=== PATIENT | male | born 1935 | race Caucasian/White ===

== ENCOUNTER 2017-08-27 08:44 | Observation (INO) | payer MEDICARE ==
[2017-08-25 09:33] VITALS: BP 145/62
[2017-08-25 09:38] LABS: BASOPHILS % (AUTO) 0.6 % (0.0-5.0); EOSINOPHILS % (AUTO) 2.1 % (0.0-8.0); LYMPHOCYTES % (AUTO) 10.8 % (21.0-51.0); MEAN CORPUSCULAR HEMOGLOBIN 35.8 pg (27.0-33.0); MEAN CORPUSCULAR HGB CONC 35.6 g/dL (32.0-36.0); MEAN CORPUSCULAR VOLUME 100.6 fL (79-99); MONOCYTES % (AUTO) 16.6 % (3.0-13.0); NEUTROPHILS % (AUTO) 69.9 % (40.0-77.0); PLATELET COUNT (AUTO) 179 K/uL (130-400); RED BLOOD CELL COUNT(AUTO) 2.79 MIL/uL (4.50-6.20); RED CELL DISTRIBUTION WIDTH 13.7 % (11.0-15.5); WHITE BLOOD COUNT (AUTO) 6.2 K/uL (4.8-10.8)
[2017-08-25 09:44] LABS: CREATININE 4.6 mg/dL (0.5-1.5); POTASSIUM 4.3 mmol/L (3.5-5.1)
[2017-08-25 09:49] LABS: INR 1.01 (0.85-1.15); PROTHROMBIN TIME 10.6 SEC (9.6-11.6)
[~2017-08-27] VITALS: Ht 180.3 cm; Wt 68.3 kg
[2017-08-27] VITALS (13 sets, daily range): BP systolic 110–156; BP diastolic 48–67
[~2017-08-27 08:44] MED LIST: ASPI-555 PO; CLON0.1T PO; CLOP75TA14 PO; DOXA2TAB2 PO; FAMO40TA7 PO; FOLI1TAB82 PO; LOSA100T29 PO; SIMV40TA5 PO
[2017-08-27] MEDS ORDERED: SODIUM CHLORIDE 0.9% 1000ML 1,000 ML IV ONE (10:45)
[2017-08-27] MEDS ORDERED: LIDOCAINE HCL 1% MDV 50ML VIAL ONE (11:21)
[2017-08-27] MEDS ORDERED: BUPIVACAINE/PF 0.25% 30ML VIAL IJ ONE (11:21)
[2017-08-27] MEDS ORDERED: CEFAZOLIN 1GM / D5W 50ML 100 ML ONE (11:21)
[2017-08-27] MEDS ORDERED: CEFAZOLIN 1GM / D5W 50ML 50 ML ONE (11:23)
[2017-08-27] MEDS ORDERED: MORPHINE SULFATE 4 MG/1ML SYG ONE (11:51)
[2017-08-27] MEDS ORDERED: CEPH250 PO (12:41)
[2017-08-27] MEDS ORDERED: ONDANSETRON HCL 4 MG/2 ML VIAL IV PRN ×2 (12:45→14:45)
[2017-08-27] MEDS ORDERED: ACETAMINOPHEN 325 MG TAB PO PRN ×4 (12:45→14:45)
[2017-08-27] MEDS ORDERED: ACETAMINOPHEN-CODEINE 300/30MG TAB PO PRN (14:45)
[2017-08-27] MEDS ORDERED: NITROGLYCERIN 0.4 MG SL TAB SL PRN (14:45)
[2017-08-27] MEDS ORDERED: LACTULOSE 20 GM/30 ML UDCUP PO PRN (14:45)
[2017-08-27] MEDS ORDERED: MAG HYDROX/AL HYDROX/SIMETH ES 30 ML SUSP UDCUP PO PRN (14:45)
[2017-08-27] MEDS ORDERED: GUAIFENESIN-DM 200/20 MG 10 ML PO PRN (14:45)
[2017-08-27] MEDS ORDERED: HYDRALAZINE HCL 20 MG/ML VIAL IV PRN (14:45)
[2017-08-27] MEDS ORDERED: MORPHINE SULFATE 2 MG/ML 1ML SYG IV PRN (14:45)
[2017-08-27] MEDS ORDERED: FAMOTIDINE/PF 20 MG/2 ML VIAL IV SCH (21:00)
[2017-08-28 04:00] VITALS: BP 137/64
[2017-08-28 04:26] LABS: HEMATOCRIT 26.1 % (42-54); MEAN CORPUSCULAR HEMOGLOBIN 36.4 pg (27.0-33.0); MEAN CORPUSCULAR HGB CONC 36.1 g/dL (32.0-36.0); MEAN CORPUSCULAR VOLUME 100.7 fL (79-99); PLATELET COUNT (AUTO) 210 K/uL (130-400); RED CELL DISTRIBUTION WIDTH 13.5 % (11.0-15.5); WHITE BLOOD COUNT (AUTO) 7.8 K/uL (4.8-10.8)
[2017-08-28 04:33] LABS: CREATININE 6.2 mg/dL (0.5-1.5); POTASSIUM 4.6 mmol/L (3.5-5.1)
[2017-08-28 07:26] VITALS: BP 154/67
[2017-08-28 11:20] VITALS: BP 148/73
[2017-08-28 15:54] VITALS: BP 176/91
[2017-08-28] MEDS ORDERED: CEFAZOLIN SODIUM 1 GM VIAL IV SCH (17:45)
[2017-08-28] MEDS ORDERED: CEFAZOLIN SODIUM 1 GM VIAL ONE (18:03)
== END 2017-08-28 18:20 | disposition home or self-care (01) ==
LOC: DAH 08:44 → DAHIP 08:45 → 2DH 16:14
PROVIDERS: ADMIT Internal Medicine; ATTEND Internal Medicine
DX: I48.1 Persistent atrial fibrillation (principal); I12.0 Hypertensive chronic kidney disease with stage 5 chronic kidney disease or end stage renal disease; N18.6 End stage renal disease; K21.9 Gastro-esophageal reflux disease without esophagitis; N31.9 Neuromuscular dysfunction of bladder, unspecified; E78.00 Pure hypercholesterolemia, unspecified; D63.8 Anemia in other chronic diseases classified elsewhere; Z80.1 Family history of malignant neoplasm of trachea, bronchus and lung; Z83.3 Family history of diabetes mellitus; Z87.891 Personal history of nicotine dependence; Z95.0 Presence of cardiac pacemaker; Z99.2 Dependence on renal dialysis
CPT/HCPCS: 33228; 36415 ×2; 71045; 80048 ×2; 85025; 85027; 85610; 85730; 93005; 96374; A4218; A4606; C1785; G0378 ×34; J0690 ×3; J2270; J3490 ×3; J7030; 90935

== ENCOUNTER → 2019-05-03 | Outpatient (CLI) | payer MEDICARE ==
[~2019-05-03] MED LIST changes: +CEPH250 PO; -LOSA100T29 PO; +LOSA100T58 PO; +SIMV-46 PO; -SIMV40TA5 PO
== END | disposition home or self-care (01) ==
LOC: SHCH 08:14
PROVIDERS: ATTEND Internal Medicine Cardiovascular Disease
DX: I08.0 Rheumatic disorders of both mitral and aortic valves (principal); I11.0 Hypertensive heart disease with heart failure; I50.20 Unspecified systolic (congestive) heart failure; I71.4 Abdominal aortic aneurysm, without rupture; I47.2 Ventricular tachycardia; I48.20 Chronic atrial fibrillation, unspecified
CPT/HCPCS: 93306; 93978

== ENCOUNTER 2021-07-26 16:46 | Inpatient (IN) | payer MEDICARE ==
[~2021-07-26] VITALS: Ht 180.3 cm; Wt 75.8 kg
[~2021-07-26 16:46] MED LIST changes: -ASPI-555 PO; +ASPI-556 PO
[2021-07-26 17:19] LABS: BASOPHILS % (AUTO) 0.2 % (0.0-5.0); EOSINOPHILS % (AUTO) 0.3 % (0.0-8.0); HEMATOCRIT 31.2 % (42-54); LYMPHOCYTES % (AUTO) 4.6 % (21.0-51.0); MEAN CORPUSCULAR HEMOGLOBIN 32.6 pg (27.0-33.0); MONOCYTES % (AUTO) 11.4 % (3.0-13.0); NEUTROPHILS % (AUTO) 82.9 % (40.0-77.0); PLATELET COUNT (AUTO) 120 K/uL (130-400); RED BLOOD CELL COUNT(AUTO) 3.25 MIL/uL (4.50-6.20); RED CELL DISTRIBUTION WIDTH 15.5 % (11.0-15.5)
[2021-07-26 17:41] LABS: ALBUMIN 2.8 g/dL (3.5-5.0); CREATININE 5.2 mg/dL (0.5-1.5); POTASSIUM 3.9 mmol/L (3.5-5.1); TOTAL PROTEIN, SERUM 6.3 g/dL (6.0-8.3)
[2021-07-26 17:48] LABS: B-TYPE NATRIURETIC PEPTIDE < 5000 pg/mL (0-100)
[2021-07-26] MEDS ORDERED: NITROGLYCERIN 0.4 MG SL TAB SL PRN (19:30)
[2021-07-26] MEDS ORDERED: ACETAMINOPHEN 325 MG TAB PO PRN ×2 (19:30)
[2021-07-26] MEDS ORDERED: DEXAMETHASONE SOD PHOSPHATE 4 MG/ML 1ML VIAL IVP SCH (19:30)
[2021-07-26] MEDS ORDERED: ALBUTEROL INHALER 90MCG/INH IH PRN (19:30)
[2021-07-26] MEDS ORDERED: ONDANSETRON 4MG INJ IV PRN (19:30)
[2021-07-26 20:16] LABS: INR 1.21 (0.85-1.15)
[2021-07-26 20:17] LABS: PARTIAL THROMBOPLASTIN TIME 34.5 SEC (26.3-35.5)
[2021-07-26 20:30] LABS: CRP QUANTITATIVE 59.5 mg/L (0.00-9.0); MAGNESIUM 2.1 mg/dL (1.80-2.40); PHOSPHORUS 5.8 mg/dL (2.5-4.9)
[2021-07-26] MEDS ORDERED: ERGOCALCIFEROL (VITAMIN D2) 50,000 UNIT CAPSULE PO ONE (20:50)
[2021-07-26] MEDS ORDERED: PHARMACY COMMUNICATION MISC SCH (21:30)
[2021-07-26] MEDS ORDERED: ERGOCALCIFEROL (VITAMIN D2) 50,000 UNIT CAPSULE ONE (23:06)
[2021-07-26] MEDS: CEFTRIAXONE 1G VIAL IVP SCH (23:15)
[2021-07-26] MEDS: FAMOTIDINE 20MG TAB PO SCH (23:15)
[2021-07-26] MEDS: ACETYLCYSTEINE 600 MG CAPSULE PO SCH (23:15)
[2021-07-26] MEDS: AZITHROMYCIN 500MG+NS 250ML IVPB SCH (23:15)
[2021-07-27] VITALS (13 sets, daily range): BP systolic 111–133; BP diastolic 57–74
[2021-07-27 05:09] LABS: APPEARANCE,URINE Turbid (CLEAR); BILIRUBIN,URINE Negative (NEGATIVE); COLOR,URINE Dark Yellow (YELLOW); GLUCOSE, URINE (UA) Negative (NEGATIVE); KETONES,URINE Negative (NEGATIVE); LEUKOCYTE ESTERASE ,URINE Large (NEGATIVE); NITRATE,URINE Negative (NEGATIVE); OCCULT BLOOD,URINE Large (NEGATIVE); PH,URINE 6.5 (5.0-8.0); PROTEIN,URINE POS 2+ mg/dL (NEGATIVE)
[2021-07-27 05:16] LABS: HEMATOCRIT 31.4 % (42-54); LYMPHOCYTES % (AUTO) 2.7 % (21.0-51.0); MEAN CORPUSCULAR HEMOGLOBIN 35.7 pg (27.0-33.0); MEAN CORPUSCULAR HGB CONC 36.3 g/dL (32.0-36.0); MEAN CORPUSCULAR VOLUME 98.4 fL (79-99); MONOCYTES % (AUTO) 4.4 % (3.0-13.0); NEUTROPHILS % (AUTO) 92.2 % (40.0-77.0); NUCLEATED RED BLOOD CELLS 0.2 % (0.0-0.19); PLATELET COUNT (AUTO) 122 K/uL (130-400); RED BLOOD CELL COUNT(AUTO) 3.19 MIL/uL (4.50-6.20); RED CELL DISTRIBUTION WIDTH 16.1 % (11.0-15.5); WHITE BLOOD COUNT (AUTO) 9.4 K/uL (4.8-10.8)
[2021-07-27 05:16] LABS: BACTERIA,URINE Moderate /HPF (None Seen)
[2021-07-27 05:17] LABS: AMORPHOUS SEDIMENT,UR Few /LPF (None Seen); AMPHET/METH SCREEN,URINE NEGATIVE (NEGATIVE); BARBITURATE SCREEN, URINE NEGATIVE (NEGATIVE); BENZODIAZEPINES SCREEN,URINE NEGATIVE (NEGATIVE); CANNABINOID SCREEN,URINE NEGATIVE (NEGATIVE); COCAINE SCREEN,URINE NEGATIVE (NEGATIVE); MUCUS,URINE Moderate LPF (None Seen); OPIATE SCREEN,URINE NEGATIVE (NEGATIVE); PHENCYCLIDINE SCREEN,URINE NEGATIVE (NEGATIVE); SQUAMOUS EPITHELIAL CELL,UR Moderate /HPF (0-2)
[2021-07-27 05:33] LABS: ALBUMIN 2.8 g/dL (3.5-5.0); BILIRUBIN,TOTAL 1.3 mg/dL (0.2-1.0); CREATININE 5.7 mg/dL (0.5-1.5); CRP QUANTITATIVE 64.4 mg/L (0.00-9.0); POTASSIUM 5.3 mmol/L (3.5-5.1); TOTAL PROTEIN, SERUM 6.4 g/dL (6.0-8.3)
[2021-07-27] MEDS: ASCORBIC ACID 500 MG TAB PO SCH (09:00)
[2021-07-27] MEDS: ZINC SULFATE 220 CAPSULE PO SCH (09:00)
[2021-07-27] MEDS: ACETYLCYSTEINE 600 MG CAPSULE PO SCH ×2 (09:00→19:42)
[2021-07-27] MEDS: MIDODRINE HCL 5 MG TABLET PO SCH ×2 (14:51→20:53)
[2021-07-27] MEDS ORDERED: 0.9% NACL 250ML 250 ML ONE (19:33)
[2021-07-27] MEDS: AZITHROMYCIN 500MG+NS 250ML IVPB SCH (19:42)
[2021-07-27] MEDS: CEFTRIAXONE 1G VIAL IVP SCH (19:42)
[2021-07-27] MEDS: FAMOTIDINE 20MG TAB PO SCH (19:42)
[2021-07-28 00:12] VITALS: BP 110/58
[2021-07-28 04:00] VITALS: BP 134/59
[2021-07-28 04:14] LABS: BASOPHILS % (AUTO) 0.1 % (0.0-5.0); MEAN CORPUSCULAR HEMOGLOBIN 40.9 pg (27.0-33.0); MEAN CORPUSCULAR HGB CONC 41.5 g/dL (32.0-36.0); MEAN CORPUSCULAR VOLUME 98.5 fL (79-99); NEUTROPHILS % (AUTO) 87.2 % (40.0-77.0); NUCLEATED RED BLOOD CELLS 0.2 % (0.0-0.19); PLATELET COUNT (AUTO) 96 K/uL (130-400); RED BLOOD CELL COUNT(AUTO) 2.64 MIL/uL (4.50-6.20); RED CELL DISTRIBUTION WIDTH 18.3 % (11.0-15.5); WHITE BLOOD COUNT (AUTO) 15.1 K/uL (4.8-10.8)
[2021-07-28 04:46] LABS: ALBUMIN 2.8 g/dL (3.5-5.0); BILIRUBIN,TOTAL 1.9 mg/dL (0.2-1.0); CREATININE 5.1 mg/dL (0.5-1.5); POTASSIUM 4.6 mmol/L (3.5-5.1); TOTAL PROTEIN, SERUM 6.1 g/dL (6.0-8.3)
[2021-07-28 08:00] VITALS: BP 112/64
[2021-07-28] MEDS: MIDODRINE HCL 5 MG TABLET PO SCH ×3 (11:02→20:11)
[2021-07-28] MEDS: ACETYLCYSTEINE 600 MG CAPSULE PO SCH ×2 (11:02→20:11)
[2021-07-28] MEDS: ASCORBIC ACID 500 MG TAB PO SCH (11:03)
[2021-07-28] MEDS: ZINC SULFATE 220 CAPSULE PO SCH (11:03)
[2021-07-28 12:00] VITALS: BP 119/73
[2021-07-28 12:50] LABS: HEPATITIS B SURFACE ANTIGEN Non-Reactive (Negative)
[2021-07-28 16:00] VITALS: BP 134/63
[2021-07-28] MEDS: HEPARIN 5,000 UNIT VIAL SQ SCH (18:36)
[2021-07-28] MEDS: AZITHROMYCIN 500MG+NS 250ML IVPB SCH (19:35)
[2021-07-28] MEDS: CEFTRIAXONE 1G VIAL IVP SCH (19:35)
[2021-07-28 20:01] VITALS: BP 112/62
[2021-07-28] MEDS: FAMOTIDINE 20MG TAB PO SCH (20:10)
[2021-07-29] VITALS (7 sets, daily range): BP systolic 110–121; BP diastolic 59–77
[2021-07-29] MEDS: HEPARIN 5,000 UNIT VIAL SQ SCH ×3 (02:12→18:13)
[2021-07-29 04:34] LABS: BASOPHILS % (AUTO) 0.1 % (0.0-5.0); LYMPHOCYTES % (AUTO) 2.9 % (21.0-51.0); MEAN CORPUSCULAR HEMOGLOBIN 37.6 pg (27.0-33.0); MEAN CORPUSCULAR HGB CONC 37.3 g/dL (32.0-36.0); MEAN CORPUSCULAR VOLUME 100.7 fL (79-99); MONOCYTES % (AUTO) 8.9 % (3.0-13.0); NEUTROPHILS % (AUTO) 87.4 % (40.0-77.0); NUCLEATED RED BLOOD CELLS 0.3 % (0.0-0.19); PLATELET COUNT (AUTO) 91 K/uL (130-400); RED BLOOD CELL COUNT(AUTO) 2.98 MIL/uL (4.50-6.20); RED CELL DISTRIBUTION WIDTH 19.4 % (11.0-15.5); WHITE BLOOD COUNT (AUTO) 15.2 K/uL (4.8-10.8)
[2021-07-29 04:59] LABS: ALBUMIN 2.8 g/dL (3.5-5.0); BILIRUBIN,TOTAL 1.9 mg/dL (0.2-1.0); CRP QUANTITATIVE 76.9 mg/L (0.00-9.0); POTASSIUM 4.8 mmol/L (3.5-5.1); TOTAL PROTEIN, SERUM 6.1 g/dL (6.0-8.3)
[2021-07-29] MEDS: ZINC SULFATE 220 CAPSULE PO SCH (08:47)
[2021-07-29] MEDS: ASCORBIC ACID 500 MG TAB PO SCH (08:47)
[2021-07-29] MEDS: ACETYLCYSTEINE 600 MG CAPSULE PO SCH ×2 (08:47→20:26)
[2021-07-29] MEDS: MIDODRINE HCL 5 MG TABLET PO SCH ×3 (08:47→20:26)
[2021-07-29] MEDS ORDERED: VANCOMYCIN PROTOCOL PER PHARMACY IV SCH (14:00)
[2021-07-29] MEDS ORDERED: VANCOMYCIN 1.25GM/NS 250ML IVPB ONE ×2 (15:30)
[2021-07-29] MEDS: CEFEPIME HCL 2 GM VIAL IVP SCH (15:52)
[2021-07-29] MEDS: FAMOTIDINE 20MG TAB PO SCH (20:26)
[2021-07-29] MEDS: DOXYCYCLINE HYCLATE 100 MG TABLET PO SCH (20:26)
[2021-07-30] VITALS (19 sets, daily range): BP systolic 110–128; BP diastolic 55–68
[2021-07-30] MEDS: HEPARIN 5,000 UNIT VIAL SQ SCH ×3 (01:29→21:30)
[2021-07-30 04:11] LABS: BASOPHILS % (AUTO) 0.1 % (0.0-5.0); EOSINOPHILS % (AUTO) 0.1 % (0.0-8.0); HEMATOCRIT 28.3 % (42-54); LYMPHOCYTES % (AUTO) 2.2 % (21.0-51.0); MEAN CORPUSCULAR HEMOGLOBIN 37.7 pg (27.0-33.0); MEAN CORPUSCULAR HGB CONC 38.9 g/dL (32.0-36.0); MEAN CORPUSCULAR VOLUME 96.9 fL (79-99); MONOCYTES % (AUTO) 8.9 % (3.0-13.0); NEUTROPHILS % (AUTO) 87.8 % (40.0-77.0); NUCLEATED RED BLOOD CELLS 0.6 % (0.0-0.19); PLATELET COUNT (AUTO) 93 K/uL (130-400); RED BLOOD CELL COUNT(AUTO) 2.92 MIL/uL (4.50-6.20); RED CELL DISTRIBUTION WIDTH 18.8 % (11.0-15.5); WHITE BLOOD COUNT (AUTO) 16.3 K/uL (4.8-10.8)
[2021-07-30 04:35] LABS: ALBUMIN 2.8 g/dL (3.5-5.0); BILIRUBIN,TOTAL 2.1 mg/dL (0.2-1.0); CREATININE 6.6 mg/dL (0.5-1.5); CRP QUANTITATIVE 73.6 mg/L (0.00-9.0); POTASSIUM 4.8 mmol/L (3.5-5.1); TOTAL PROTEIN, SERUM 5.7 g/dL (6.0-8.3)
[2021-07-30] MEDS: ASCORBIC ACID 500 MG TAB PO SCH (08:38)
[2021-07-30] MEDS: DOXYCYCLINE HYCLATE 100 MG TABLET PO SCH ×2 (08:38→21:30)
[2021-07-30] MEDS: ACETYLCYSTEINE 600 MG CAPSULE PO SCH ×2 (08:38→21:31)
[2021-07-30] MEDS: ZINC SULFATE 220 CAPSULE PO SCH (08:38)
[2021-07-30] MEDS: MIDODRINE HCL 5 MG TABLET PO SCH ×3 (08:38→21:30)
[2021-07-30] MEDS: CEFEPIME HCL 2 GM VIAL IVP SCH (15:45)
[2021-07-30] MEDS ORDERED: MECL-160 PO (18:07)
[2021-07-30] MEDS ORDERED: PROM118S5 PO (18:07)
[2021-07-30] MEDS ORDERED: FURO20TA4 PO (18:07)
[2021-07-30] MEDS ORDERED: METO-391 PO (18:07)
[2021-07-30] MEDS ORDERED: SPIR25TA6 PO (18:07)
[2021-07-30] MEDS: MECLIZINE HCL 25 MG TABLET PO SCH (21:30)
[2021-07-30] MEDS: FAMOTIDINE 20MG TAB PO SCH (21:30)
[2021-07-30] MEDS: DOCUSATE SODIUM 100 MG CAP PO SCH (21:30)
[2021-07-30] MEDS: ASPIRIN 81 MG EC TAB PO SCH (21:31)
[2021-07-31] VITALS: BP 122/51
[2021-07-31 04:00] VITALS: BP 132/64
[2021-07-31] MEDS: HEPARIN 5,000 UNIT VIAL SQ SCH ×3 (04:29→18:36)
[2021-07-31 06:47] LABS: BASOPHILS % (AUTO) 0.2 % (0.0-5.0); EOSINOPHILS % (AUTO) 0.2 % (0.0-8.0); HEMATOCRIT 29.7 % (42-54); LYMPHOCYTES % (AUTO) 3.7 % (21.0-51.0); MEAN CORPUSCULAR HGB CONC 36.7 g/dL (32.0-36.0); MEAN CORPUSCULAR VOLUME 95.5 fL (79-99); MONOCYTES % (AUTO) 11.1 % (3.0-13.0); NEUTROPHILS % (AUTO) 83.8 % (40.0-77.0); NUCLEATED RED BLOOD CELLS 0.8 % (0.0-0.19); PLATELET COUNT (AUTO) 92 K/uL (130-400); RED BLOOD CELL COUNT(AUTO) 3.11 MIL/uL (4.50-6.20); WHITE BLOOD COUNT (AUTO) 12.4 K/uL (4.8-10.8)
[2021-07-31 06:56] LABS: POTASSIUM 3.7 mmol/L (3.5-5.1)
[2021-07-31 08:00] VITALS: BP 127/67
[2021-07-31] MEDS: MIDODRINE HCL 5 MG TABLET PO SCH ×3 (08:38→21:00)
[2021-07-31] MEDS: DOXYCYCLINE HYCLATE 100 MG TABLET PO SCH ×2 (08:38→20:34)
[2021-07-31] MEDS: ASCORBIC ACID 500 MG TAB PO SCH (08:38)
[2021-07-31] MEDS: ZINC SULFATE 220 CAPSULE PO SCH (08:38)
[2021-07-31] MEDS: ACETYLCYSTEINE 600 MG CAPSULE PO SCH ×2 (08:38→20:34)
[2021-07-31] MEDS: MECLIZINE HCL 25 MG TABLET PO SCH ×2 (08:38→20:34)
[2021-07-31 09:29] LABS: ALBUMIN 2.6 g/dL (3.5-5.0); BILIRUBIN,DIRECT 1.8 mg/dL (0.0-0.3); BILIRUBIN,TOTAL 2.4 mg/dL (0.2-1.0); TOTAL PROTEIN, SERUM 5.6 g/dL (6.0-8.3)
[2021-07-31 11:56] VITALS: BP 104/56
[2021-07-31] MEDS ORDERED: VANCOMYCIN 500MG+NS 100ML IVPB IV SCH (14:00)
[2021-07-31] MEDS: CEFEPIME HCL 2 GM VIAL IVP SCH (14:37)
[2021-07-31 16:00] VITALS: BP 121/64
[2021-07-31 20:00] VITALS: BP 149/60
[2021-07-31] MEDS: FAMOTIDINE 20MG TAB PO SCH (20:34)
[2021-07-31] MEDS: DOCUSATE SODIUM 100 MG CAP PO SCH (20:34)
[2021-08-01] VITALS (18 sets, daily range): BP systolic 108–130; BP diastolic 54–85
[2021-08-01] MEDS: HEPARIN 5,000 UNIT VIAL SQ SCH ×3 (02:16→18:30)
[2021-08-01 07:08] LABS: BASOPHILS % (AUTO) 0.1 % (0.0-5.0); LYMPHOCYTES % (AUTO) 2.7 % (21.0-51.0); MEAN CORPUSCULAR HEMOGLOBIN 34.5 pg (27.0-33.0); MEAN CORPUSCULAR HGB CONC 34.7 g/dL (32.0-36.0); MEAN CORPUSCULAR VOLUME 99.4 fL (79-99); NEUTROPHILS % (AUTO) 85.4 % (40.0-77.0); PLATELET COUNT (AUTO) 89 K/uL (130-400); RED BLOOD CELL COUNT(AUTO) 3.42 MIL/uL (4.50-6.20); RED CELL DISTRIBUTION WIDTH 21.6 % (11.0-15.5); WHITE BLOOD COUNT (AUTO) 10.7 K/uL (4.8-10.8)
[2021-08-01 07:21] LABS: ALBUMIN 2.9 g/dL (3.5-5.0); BILIRUBIN,DIRECT 1.9 mg/dL (0.0-0.3); BILIRUBIN,TOTAL 2.6 mg/dL (0.2-1.0); CREATININE 6.2 mg/dL (0.5-1.5); POTASSIUM 4.1 mmol/L (3.5-5.1); TOTAL PROTEIN, SERUM 6.3 g/dL (6.0-8.3)
[2021-08-01] MEDS: MIDODRINE HCL 5 MG TABLET PO SCH ×3 (08:58→21:12)
[2021-08-01] MEDS: ASPIRIN 81 MG EC TAB PO SCH (08:58)
[2021-08-01] MEDS: DOXYCYCLINE HYCLATE 100 MG TABLET PO SCH ×2 (08:58→21:12)
[2021-08-01] MEDS: MECLIZINE HCL 25 MG TABLET PO SCH ×2 (08:58→21:12)
[2021-08-01] MEDS: ACETYLCYSTEINE 600 MG CAPSULE PO SCH ×2 (08:58→21:12)
[2021-08-01] MEDS: ZINC SULFATE 220 CAPSULE PO SCH (08:59)
[2021-08-01] MEDS: ASCORBIC ACID 500 MG TAB PO SCH (08:59)
[2021-08-01] MEDS ORDERED: METOPROLOL SUCCINATE 50 MG TAB.SR.24H PO SCH (09:00)
[2021-08-01] MEDS: CEFEPIME HCL 2 GM VIAL IVP SCH (14:00)
[2021-08-01 19:49] LABS: HEMATOCRIT 29.5 % (42-54)
[2021-08-01] MEDS: DOCUSATE SODIUM 100 MG CAP PO SCH (21:12)
[2021-08-01] MEDS: FAMOTIDINE 20MG TAB PO SCH (21:12)
[2021-08-02] VITALS: BP 96/57
[2021-08-02] MEDS: HEPARIN 5,000 UNIT VIAL SQ SCH (02:27)
[2021-08-02 04:00] VITALS: BP 116/60
[2021-08-02 07:00] VITALS: BP 109/55
== END 2021-08-02 09:15 | DRG 177 ==
LOC: EDH 16:46 → EDHIP 19:14 → 4BH 07-27 14:49
PROVIDERS: ADMIT Internal Medicine; ATTEND Internal Medicine
PROC: 5A1D70Z Performance of Urinary Filtration, Intermittent, Less than 6 Hours Per Day (ICD-10-PCS; principal; 2021-07-27)
PROC: 5A1D70Z Performance of Urinary Filtration, Intermittent, Less than 6 Hours Per Day (ICD-10-PCS; 2021-07-30)
PROC: 5A1D70Z Performance of Urinary Filtration, Intermittent, Less than 6 Hours Per Day (ICD-10-PCS; 2021-08-01)
DX: U07.1 COVID-19 (principal); J12.82 Pneumonia due to coronavirus disease 2019; N18.6 End stage renal disease; E87.1 Hypo-osmolality and hyponatremia; I12.0 Hypertensive chronic kidney disease with stage 5 chronic kidney disease or end stage renal disease; N39.0 Urinary tract infection, site not specified; R18.8 Other ascites; E78.5 Hyperlipidemia, unspecified; I44.0 Atrioventricular block, first degree; K21.9 Gastro-esophageal reflux disease without esophagitis; I48.0 Paroxysmal atrial fibrillation; D69.59 Other secondary thrombocytopenia; I25.10 Atherosclerotic heart disease of native coronary artery without angina pectoris; E78.00 Pure hypercholesterolemia, unspecified; S30.1XXA Contusion of abdominal wall, initial encounter; B95.62 Methicillin resistant Staphylococcus aureus infection as the cause of diseases classified elsewhere; N31.9 Neuromuscular dysfunction of bladder, unspecified; E87.70 Fluid overload, unspecified; E11.22 Type 2 diabetes mellitus with diabetic chronic kidney disease; K82.8 Other specified diseases of gallbladder; R74.8 Abnormal levels of other serum enzymes; K80.20 Calculus of gallbladder without cholecystitis without obstruction; D53.9 Nutritional anemia, unspecified; R53.81 Other malaise; Z99.2 Dependence on renal dialysis; Z95.0 Presence of cardiac pacemaker; Z83.3 Family history of diabetes mellitus; Z83.6 Family history of other diseases of the respiratory system; Z80.1 Family history of malignant neoplasm of trachea, bronchus and lung; Z82.49 Family history of ischemic heart disease and other diseases of the circulatory system; Z91.15 Patient's noncompliance with renal dialysis
CPT/HCPCS: 36415; 70450; 71045; 71250; 74176; 76705; 78226; 80048; 80053; 80076; 80305; 81001; 82140; 82533; 82550; 82728; 83605; 83615; 83735; 83874; 83880; 84100; 84145; 84443; 84484; 85014; 85018; 85025; 85378; 85610; 85730; 86140; 86704; 86706; 87040; 87077; 87088; 87186; 87340; 87635; 90935; 93005; 93970; 97039; 99291; A9537; G0378; J0456; J0692; J0696; J1100; J1644; J3370; J7050